=== PATIENT | female | born 1950 | race African-American/Black ===

== ENCOUNTER 2016-08-20 19:30 | Emergency (ER) | payer MEDICARE, OTHER ==
[~2016-08-20] VITALS: Ht 167.6 cm; Wt 112.5 kg
[~2016-08-20 19:30] MED LIST: ACETAMINOPHEN-1 EAC2 PO; AZITHROMYCIN250 MG ORAL; AZITHROMYCIN250 MG PO; ECOTRIN325 MG PO; FERROUS SULFAT325 MG PO; FLEXERIL10 MG PO; FOLIC ACID1 MG PO; GLUCOPHAGE500 MG PO; LOPID600 MG PO; METFORMIN HCL500 M1 ORAL; NORVASC2.5 MG PO; OMEPRAZOLE20 MG PO; PHENERGAN/CODE120 ML PO; SINGULAIR10 MG PO; TAMIFLU75 MG PO; VICODIN 5-5001 EACH PO; VICTOZA 2-0.6 MG/0.1 SUBQ; VITAMIN E400 UNI2 PO; advair; albuterol; soma
[2016-08-20] MEDS ORDERED: Nitroglycerin Subl 0.4mg tab (Bottle Of 25) SL PRN (20:00)
[2016-08-20 20:14] VITALS: BP 134/80
[2016-08-20 20:14] LABS: BASOPHILS % (AUTO) 1.5 % (0.0-2.0); LYMPHOCYTES % (AUTO) 48.8 % (20.0-45.0); MEAN CORPUSCULAR HEMOGLOBIN 27.6 PG (27.0-31.0); MEAN CORPUSCULAR HGB CONC 31.4 G/DL (32.0-36.0); MEAN CORPUSCULAR VOLUME 88 FL (80-99); MEAN PLATELET VOLUME 7.9 FL (6.5-10.1); MONOCYTES % (AUTO) 4.3 % (1.0-10.0); NEUTROPHILS % (AUTO) 43.3 % (45.0-75.0); PLATELET COUNT 278 K/UL (150-450); RED BLOOD COUNT 4.24 M/UL (4.20-5.40); RED CELL DISTRIBUTION WIDTH 12.8 % (11.6-14.8); WHITE BLOOD COUNT 8.4 K/UL (4.8-10.8)
[2016-08-20] MEDS ORDERED: Morphine Sulfate 4mg/ml Inj IVP ONE (20:30)
[2016-08-20 20:31] LABS: ALANINE AMINOTRANSFERASE 19 U/L (3-33); ANION GAP 13 (5-15); ASPARTATE AMINO TRANSFERASE 20 U/L (5-40); CALCIUM 8.9 mg/dL (8.6-10.2); CARBON DIOXIDE 24 mEQ/L (20-30); CHLORIDE 103 mEQ/L (98-107); CREATININE 0.9 mg/dL (0.5-0.9); GLOMERULAR FILTRATION RATE > 60 mL/min (>60); HEMOLYSIS 14; POTASSIUM 4.1 mEQ/L (3.4-4.9); SODIUM 140 mEQ/L (135-145); TOTAL PROTEIN 7.5 g/dL (6.6-8.7); TROPONIN I < 0.30 ng/mL (<=0.30)
[2016-08-20 20:42] LABS: CKMB < 1.5 ng/mL (< 3.8)
[2016-08-20 22:32] VITALS: BP 140/86
[2016-08-20 22:33] VITALS: BP 134/80
--- NOTE | 2016-08-20 22:57 | Emergency Room Report ---
History of Present Illness General Chief Complaint: Chest Pain Source: Patient Present Illness HPI 66-year-old female presents to ED complaining of chest pain and left hip pain. States that earlier today she noticed pain in her left hip. Denies trauma. Pain got worse. /10. Throbbing. Nonradiating. Worse with walking. No other aggravating or relieving factors. Patient also started complaining of chest pain which started shortly after. Pain is pressure-like, left-sided, 7/10 , radiating to the left side of jaw. No other aggravating relieving factors. Denies shortness of breath. Took nitroglycerin at home and states it helped. PMD is Dr. Arellano. Denies any other associated symptoms Allergies: Coded Allergies: BENAZEPRIL (Verified Allergy, Severe, pt had swelling tongue, required treatment to reverse, 11/02/08) HEPARIN AGENTS (Verified Allergy, Unknown, 01/05/10) Patient History Past Medical History: DM, HTN, COPD, CVA/TIA Past Surgical History: none Pertinent Family History: none Social History: Denies: alcohol use, drug use, smoking Now: No Immunizations: UTD Reviewed Nursing Documentation: PMH: Agreed, PSxH: Agreed Nursing Documentation-PMH Hx Cardiac Problems: Yes Hx Hypertension: Yes Hx COPD: Yes Hx Diabetes: Yes - type2 Hx Cancer: No Hx Gastrointestinal Problems: No Hx Neurological Problems: No Hx Cerebrovascular Accident: Yes - 2005, 2013 Hx Transient Ischemic Attacks: Yes - 2012 Hx Dizziness: Yes - PATIENT STATED HAVING DIZZINESS SOME MORNINGS BUT NOT TODAY Review of Systems All Other Systems: negative except mentioned in HPI Physical Exam Vital Signs Date Time Temp Pulse Resp B/P Pulse Ox O2 Delivery O2 Flow Rate FiO2 08/20/16 19:39 98.1 90 24 170/74 99 Room Air Sp02 EP Interpretation: reviewed, normal General Appearance: obese Head: normocephalic Eyes: bilateral eye PERRL, bilateral eye normal inspection ENT: normal ENT inspection Neck: normal inspection Respiratory: chest non-tender, lungs clear, normal breath sounds, speaking full sentences Cardiovascular #1: regular rate, rhythm, no edema Gastrointestinal: normal bowel sounds, non tender, soft, non-distended, no guarding, no rebound Rectal: deferred Genitourinary: no CVA tenderness Musculoskeletal: other - full ROM L hip. no bruising/deformity. no creptius Neurologic: alert, oriented x3, responsive, motor strength/tone normal, sensory intact, speech normal Psychiatric: normal inspection Skin: normal inspection Lymphatic: normal inspection Medical Decision Making Diagnostic Impression: Primary Impression: Chest pain Qualified Codes: R07.9 - Chest pain, unspecified Additional Impression: Hip pain Qualified Codes: M25.552 - Pain in left hip ER Course Hospital Course 66-year-old female presents ED complaining of left-sided chest pain, left hip pain Differential diagnoses include: CT/unstable angina, contusion, muscle strain, PTX, rib fracture Clinical course Patient placed on stretcher. on shelter monitor. After initial history and physical I ordered labs, EKG, chest x-ray, NTG, morphine, L hip xray labs reviewed- no luekocytosis, hb/hct stable, electrolytes ok, trop negative EKG - NSR Chest x-ray- no acute process L hip xray - no fx because of patient's risk factors and presentation I believe she should be admitted for rule out ACS. However patient does not want to stay because she is feeling better. Understands the risks of leaving. Patient has competency to make her own decisions. Signed AMA form. I. I feel this is a highly complex case requiring extensive working including EKG/Rhythm strip, Xray/CT/US, Blood/urine lab work, repeat exams while in ED, and administration of strong opiates/narcotics for pain control, admission to hospital or close patient follow up. Diagnosis - chest pain, hip pain left AMA Labs Test 08/20/16 19:52 White Blood Count 8.4 K/UL (4.8-10.8) Red Blood Count 4.24 M/UL (4.20-5.40) Hemoglobin 11.7 G/DL (12.0-16.0) Hematocrit 37.3 % (37.0-47.0) Mean Corpuscular Volume 88 FL (80-99) Mean Corpuscular Hemoglobin 27.6 PG (27.0-31.0) Mean Corpuscular Hemoglobin Concent 31.4 G/DL (32.0-36.0) Red Cell Distribution Width 12.8 % (11.6-14.8) Platelet Count 278 K/UL (150-450) Mean Platelet Volume 7.9 FL (6.5-10.1) Neutrophils (%) (Auto) 43.3 % (45.0-75.0) Lymphocytes (%) (Auto) 48.8 % (20.0-45.0) Monocytes (%) (Auto) 4.3 % (1.0-10.0) Eosinophils (%) (Auto) 2.0 % (0.0-3.0) Basophils (%) (Auto) 1.5 % (0.0-2.0) Sodium Level 140 mEQ/L (135-145) Potassium Level 4.1 mEQ/L (3.4-4.9) Chloride Level 103 mEQ/L (98-107) Carbon Dioxide Level 24 mEQ/L (20-30) Anion Gap 13 (5-15) Blood Urea Nitrogen 16 mg/dL (7-23) Creatinine 0.9 mg/dL (0.5-0.9) Estimat Glomerular Filtration Rate > 60 mL/min (>60) Glucose Level 121 mg/dL (74-106) Calcium Level 8.9 mg/dL (8.6-10.2) Total Bilirubin < 0.2 mg/dL (0.0-1.2) Aspartate Amino Transf (AST/SGOT) 20 U/L (5-40) Alanine Aminotransferase (ALT/SGPT) 19 U/L (3-33) Alkaline Phosphatase 126 U/L (35-104) Total Creatine Kinase 252 U/L (26-140) Creatine Kinase MB < 1.5 ng/mL (< 3.8) Creatine Kinase MB Relative Index Troponin I < 0.30 ng/mL (<=0.30) Pro-B-Type Natriuretic Peptide 57 pg/mL (0-125) Total Protein 7.5 g/dL (6.6-8.7) Albumin 3.8 g/dL (3.5-5.2) Globulin 3.7 g/dL Albumin/Globulin Ratio 1.0 (1.0-2.7) EKG Diagnostic Results Rate: normal Rhythm: NSR ST Segments: no acute changes ASA given to the pt in ED: No Rhythm Strip Diag. Results EP Interpretation: yes Rhythm: NSR, no PVC's, no ectopy Chest X-Ray Diagnostic Results EP Interpretation: Yes Findings: no consolidation, no effusion, no pneumothorax, no acute cardiopulmonary disease Number of Views: 1 Other X-Ray Diagnostic Results Other X-Ray Diagnostic Results : X-Ray Ordered: L hip EP Interpretation: Yes Findings: no fractures, no dislocation, no soft tissue swelling Number of Views: 3 Last Vital Signs Date Time Temp Pulse Resp B/P Pulse Ox O2 Delivery O2 Flow Rate FiO2 08/20/16 22:33 98.1 79 20 134/80 98 Room Air Status: improved Disposition: AGAINST MEDICAL ADVICE Condition: Stable Referrals: TRACEY ARELLANO (PCP) GLENNA MASTERS M.D. Aug 20, 2016 22:56
--- NOTE | 2016-08-21 10:10 | Diagnostic Imaging Report ---
Indication: Pain, no trauma Technique: 2 views of the left hip Comparison: Findings: There is mild narrowing of the left hip joint. No acute fractures. No dislocations. Impression: No acute process Mild degenerative changes
--- NOTE | 2016-08-21 10:11 | Diagnostic Imaging Report ---
Indication: Chest Technique: One view of the chest Comparison: 04/29/2014 Findings: Body habitus limits evaluation. Improved inspiration currently. Lungs and pleural spaces are clear. Heart size is upper limits of normal Impression: No acute process
--- NOTE | 2016-08-23 14:57 | Cardiology Report ---
APPROVED REPORT EKG Measurement Heart [id number] Normal sinus rhythm Normal ECG
== END 2016-08-20 22:51 | disposition left against medical advice (07) ==
LOC: EMR 21:03
DX: R07.9 Chest pain, unspecified (principal); M25.552 Pain in left hip; E11.9 Type 2 diabetes mellitus without complications; I10 Essential (primary) hypertension; J44.9 Chronic obstructive pulmonary disease, unspecified; Z86.73 Personal history of transient ischemic attack (TIA), and cerebral infarction without residual deficits; Z88.8 Allergy status to other drugs, medicaments and biological substances
CPT/HCPCS: 36415; 71010; 73502; 80053; 82550; 82553; 83880; 84484; 85025; 93005; 96374; 99284; J2270

== ENCOUNTER 2016-10-25 05:32 | Observation (INO) | payer MEDICARE, OTHER ==
[~2016-10-25] VITALS: Ht 162.6 cm; Wt 116.1 kg
[~2016-10-25 05:32] MED LIST changes: +Nitroglycerin 2% oint pkt TOPIC ONE
--- NOTE | 2016-10-25 05:55 | Emergency Room Report ---
History of Present Illness General Chief Complaint: Chest Pain Source: Patient (HEATH RODRIGUEZ M.D.) Present Illness HPI 66 YOF with right sided chest pain, non-radiating, worse with movement, reproducible, worse with breathing that woke her from sleep. CAD risk factors, DM, HTN. Different than the chest pain she had in Aug when she came to ED (ECG and troponin normal, signed out AMA). Denies history of AMI in herself. Denies history of DVT, PE. Non-smoker. Denies calf pain, swelling. (HEATH RODRIGUEZ M.D.) Allergies: Coded Allergies: BENAZEPRIL (Verified Allergy, Severe, pt had swelling tongue, required treatment to reverse, 11/02/08) HEPARIN AGENTS (Verified Allergy, Unknown, 01/05/10) Patient History Past Medical History: DM, HTN, COPD Past Surgical History: none Pertinent Family History: none Social History: Denies: alcohol use, drug use, smoking Now: No Immunizations: UTD Reviewed Nursing Documentation: PMH: Agreed, PSxH: Agreed (HEATH RODRIGUEZ M.D.) Nursing Documentation-PMH Hx Cardiac Problems: Yes Hx Hypertension: Yes Hx COPD: Yes Hx Diabetes: Yes - type2 Hx Cancer: No Hx Gastrointestinal Problems: No Hx Neurological Problems: No Hx Cerebrovascular Accident: Yes - 2005, 2013 Hx Transient Ischemic Attacks: Yes - 2012 Hx Dizziness: Yes - PATIENT STATED HAVING DIZZINESS SOME MORNINGS BUT NOT TODAY (HEATH RODRIGUEZ M.D.) Review of Systems All Other Systems: negative except mentioned in HPI (HEATH RODRIGUEZ M.D.) Physical Exam Vital Signs Date Time Temp Pulse Resp B/P Pulse Ox O2 Delivery O2 Flow Rate FiO2 10/25/16 05:40 97.5 75 20 126/67 99 Room Air Sp02 EP Interpretation: reviewed, normal General Appearance: normal inspection, well appearing, no apparent distress, alert, GCS 15, non-toxic, obese Head: normocephalic, atraumatic Eyes: bilateral eye EOMI, bilateral eye PERRL ENT: normal ENT inspection, hearing grossly normal, normal voice Neck: normal inspection, full range of motion, supple, no bony tend Respiratory: normal inspection, lungs clear, normal breath sounds, no respiratory distress, no retraction, no wheezing, other - Reproducible right sided chest pain, chest symmetrical Cardiovascular #1: regular rate, rhythm, no edema Gastrointestinal: normal inspection, normal bowel sounds, non tender, soft, no guarding, no hernia Genitourinary: no CVA tenderness Musculoskeletal: normal inspection, back normal, normal range of motion, Clark' s Sign negative Neurologic: normal inspection, alert, oriented x3, responsive, breaker hand III-XII nml as tested, motor strength/tone normal, speech normal Psychiatric: normal inspection, judgement/insight normal, mood/affect normal Skin: normal inspection, normal color, no rash (HEATH RODRIGUEZ M.D.) Medical Decision Making Diagnostic Impression: Primary Impression: Chest pain Qualified Codes: R07.1 - Chest pain on breathing ER Course Pleuritic chest pain, reproducible. VSS. Afebrile DDx ACS, PTX, PE, MSK pain PLAN Labs, troponin, d-dimer, CXR, reassess (HEATH RODRIGUEZ M.D.) ER Course CT angio negative. C/O pain and BROWNLEE. Initially refused analgesia, the agreed. Improved with treatment. Admitted tele Dr. Arellano. Laboratory Tests Test 10/25/16 05:45 10/25/16 15:07 White Blood Count 7.0 K/UL (4.8-10.8) Red Blood Count 4.38 M/UL (4.20-5.40) Hemoglobin 11.8 G/DL (12.0-16.0) L Hematocrit 37.4 % (37.0-47.0) Mean Corpuscular Volume 85 FL (80-99) Mean Corpuscular Hemoglobin 27.0 PG (27.0-31.0) Mean Corpuscular Hemoglobin Concent 31.6 G/DL (32.0-36.0) L Red Cell Distribution Width 12.6 % (11.6-14.8) Platelet Count 301 K/UL (150-450) Mean Platelet Volume 8.4 FL (6.5-10.1) Neutrophils (%) (Auto) 47.4 % (45.0-75.0) Lymphocytes (%) (Auto) 44.3 % (20.0-45.0) Monocytes (%) (Auto) 5.6 % (1.0-10.0) Eosinophils (%) (Auto) 1.1 % (0.0-3.0) Basophils (%) (Auto) 1.6 % (0.0-2.0) D-Dimer 616 ng/mL (<500) H Sodium Level 141 mEQ/L (135-145) Potassium Level 4.1 mEQ/L (3.4-4.9) Chloride Level 102 mEQ/L (98-107) Carbon Dioxide Level 21 mEQ/L (20-30) Anion Gap 18 (5-15) H Blood Urea Nitrogen 15 mg/dL (7-23) Creatinine 0.9 mg/dL (0.5-0.9) Estimate Glomerular Filtration Rate > 60 mL/min (>60) Glucose Level 121 mg/dL (74-106) H Calcium Level 9.0 mg/dL (8.6-10.2) Total Bilirubin < 0.2 mg/dL (0.0-1.2) Aspartate Amino Transferase (AST) 16 U/L (5-40) Alanine Aminotransferase (ALT) 17 U/L (3-33) Alkaline Phosphatase 135 U/L (35-104) H Total Creatine Kinase 182 U/L (26-140) H Creatine Kinase MB < 1.5 ng/mL (< 3.8) Creatine Kinase MB Relative Index 0.8 Troponin I < 0.30 ng/mL (<=0.30) < 0.30 ng/mL (<=0.30) Total Protein 7.2 g/dL (6.6-8.7) Albumin 3.9 g/dL (3.5-5.2) Globulin 3.3 g/dL Albumin/Globulin Ratio 1.1 (1.0-2.7) (Celestino Mckeon M.D.) EKG Diagnostic Results Rate: normal Rhythm: NSR ST Segments: no acute changes (HEATH RODRIGUEZ M.D.) Rhythm Strip Diag. Results EP Interpretation: yes Rate: 75 Rhythm: NSR, no PVC's, no ectopy (HEATH RODRIGUEZ M.D.) Last Vital Signs Date Time Temp Pulse Resp B/P Pulse Ox O2 Delivery O2 Flow Rate FiO2 10/25/16 05:40 97.5 75 20 126/67 99 Room Air Status: improved Reevaluation Impression Endorsed to Dr Mckeon at 7am to follow up labs, CXR Will need to be admitted for rule out ACS Advised for CT Chest if elevated d-dimer to evaluate for PE (HEATH RODRIGUEZ M.D.) Last Vital Signs Date Time Temp Pulse Resp B/P Pulse Ox O2 Delivery O2 Flow Rate FiO2 10/26/16 00:44 88 16 99 Room Air 10/25/16 21:06 97.4 116/68 Status: improved (Celestino Mckeon M.D.) Disposition: ADMITTED INPATIENT Condition: Serious HEATH RODRIGUEZ M.D. Oct 25, 2016 05:55 Celestino Mckeon M.D. Oct 25, 2016 10:00
[2016-10-25 06:13] LABS: BASOPHILS % (AUTO) 1.6 % (0.0-2.0); EOSINOPHILS % (AUTO) 1.1 % (0.0-3.0); LYMPHOCYTES % (AUTO) 44.3 % (20.0-45.0); MEAN CORPUSCULAR HGB CONC 31.6 G/DL (32.0-36.0); MEAN CORPUSCULAR VOLUME 85 FL (80-99); MEAN PLATELET VOLUME 8.4 FL (6.5-10.1); MONOCYTES % (AUTO) 5.6 % (1.0-10.0); NEUTROPHILS % (AUTO) 47.4 % (45.0-75.0); PLATELET COUNT 301 K/UL (150-450); RED BLOOD COUNT 4.38 M/UL (4.20-5.40); RED CELL DISTRIBUTION WIDTH 12.6 % (11.6-14.8)
[2016-10-25] MEDS ORDERED: Nitroglycerin 2% oint pkt TOPIC ONE (07:00)
[2016-10-25 07:19] LABS: CKMB < 1.5 ng/mL (< 3.8)
[2016-10-25 07:25] LABS: TROPONIN I < 0.30 ng/mL (<=0.30)
[2016-10-25 07:31] LABS: ALANINE AMINOTRANSFERASE 17 U/L (3-33); ALBUMIN/GLOBULIN RATIO 1.1 (1.0-2.7); ANION GAP 18 (5-15); ASPARTATE AMINO TRANSFERASE 16 U/L (5-40); CARBON DIOXIDE 21 mEQ/L (20-30); CHLORIDE 102 mEQ/L (98-107); CREATININE 0.9 mg/dL (0.5-0.9); GLOMERULAR FILTRATION RATE > 60 mL/min (>60); HEMOLYSIS 7; POTASSIUM 4.1 mEQ/L (3.4-4.9); SODIUM 141 mEQ/L (135-145); TOTAL PROTEIN 7.2 g/dL (6.6-8.7)
[2016-10-25 07:40] VITALS: BP 115/52
[2016-10-25] MEDS ORDERED: INVOKANA100 MG PO (07:41)
[2016-10-25] MEDS ORDERED: VALIUM5 MG ORAL (07:43)
[2016-10-25] MEDS ORDERED: SOMA350 MG PO (07:43)
[2016-10-25] MEDS ORDERED: SINGULAIR10 MG ORAL (07:43)
[2016-10-25] MEDS ORDERED: NITROGLYCERIN0.4 MG SL (07:43)
[2016-10-25] MEDS ORDERED: ADVAIR 100-501 EACH INH (07:46)
[2016-10-25] MEDS ORDERED: ALBUTEROL SULF8.5 GM INH (07:47)
[2016-10-25] MEDS ORDERED: CENTRUM MVI (07:51)
[2016-10-25] MEDS ORDERED: vit b 12 (07:51)
[2016-10-25] MEDS ORDERED: vit e (07:51)
[2016-10-25] MEDS ORDERED: FISH OIL300 M1 PO (07:51)
--- NOTE | 2016-10-25 09:47 | Diagnostic Imaging Report ---
Indication: SOB Technique: XRAY CHEST 1 V. Comparison: 08/20/2016 Findings: The cardiomediastinal silhouette is stable. There are no acute infiltrates. There has been no change from prior exam. Impression: No acute abnormality. .
[2016-10-25 09:52] VITALS: BP 136/66
[2016-10-25] MEDS ORDERED: Morphine Sulfate 4mg/ml Inj IVP ONE (10:15)
[2016-10-25 12:41] VITALS: BP 136/66
[2016-10-25 14:41] VITALS: BP 110/65
[2016-10-25] MEDS ORDERED: Aspirin Baby 81mg ORAL ONE (14:45)
[2016-10-25] MEDS ORDERED: 1/2 NS 1000ml IV ONE (15:24)
[2016-10-25 15:59] LABS: TROPONIN I < 0.30 ng/mL (<=0.30)
[2016-10-25 17:10] VITALS: BP 113/83
[2016-10-25] MEDS ORDERED: DuoNeb 0.5-3(2.5)mg/3ml neb HHN PRN (18:15)
[2016-10-25] MEDS ORDERED: Norco 5mg/325mg tab ORAL PRN (18:15)
[2016-10-25] MEDS ORDERED: metFORMIN 500mg tab ORAL SCH (21:00)
[2016-10-25 21:06] VITALS: BP 116/68
[2016-10-25] MEDS: NovoLOG Insulin Flexpen SUBQ SCH (21:59)
[2016-10-25] MEDS ORDERED: Pseudoephedrine 30mg tab ORAL ONE (22:30)
[2016-10-25] MEDS: Montelukast 10mg tablet ORAL SCH (22:33)
[2016-10-26] VITALS: BP 109/63
[2016-10-26] MEDS: DuoNeb 0.5-3(2.5)mg/3ml neb HHN SCH ×4 (00:35→19:07)
--- NOTE | 2016-10-26 00:49 | History and Physical Report ---
DATE OF ADMISSION: 10/25/2016 REASON FOR ADMISSION: Chest pain and congestion. HISTORY OF PRESENT ILLNESS: This is a 66-year-old female with hypertensive heart disease and [id number] diabetes mellitus for the past few weeks. She has had progressive nasal discharge, congestion, and postnasal drip. She was started as an outpatient on decongestant therapy. She has not improved much. Early this morning, she was awakened from sleep with difficulty breathing. She also noted sharp right-sided chest pain. The patient's symptoms worsened and she came to the emergency room. Her workup included a CT angiogram, which was negative for acute pulmonary embolus. D-dimer is elevated and troponin is negative. The patient was admitted for observation. PAST MEDICAL HISTORY: Hypertension with hypertensive heart disease, asthma with paroxysmal bronchospasm, type 2 diabetes mellitus, postnasal drip, osteoarthritis, degenerative disk disease, history of cerebrovascular accident and transient ischemic attack. MEDICATIONS: Prior to admission, reviewed and reconciled. ALLERGIES: Include heparin, benazepril and metformin. SOCIAL HISTORY: No smoking, alcohol, or substance abuse. REVIEW OF SYSTEMS: No fevers or chills. She has had cough especially at night when lying flat. She occasionally has had wheezing especially last night. Her echocardiogram as an outpatient revealed normal ejection fraction with concentric hypertrophy and no significant valvular disease. There is no history of atrial tachyarrhythmias. She has not had any change in bowel habits. Her diabetes is managed now with Invokana. 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 There is no history of thyroid disorder. She is on anti-lipid drugs. First elevated triglycerides. There is no history of seizures. She has had prior strokes with no residual deficits. She has had frequent headaches over the past few weeks. PHYSICAL EXAMINATION: GENERAL: She appears well at this time and in no acute distress. VITAL SIGNS: Blood pressure 116/68, pulse 76, respirations 18, and afebrile. HEENT: Conjunctivae are pink. Sclerae are anicteric. Oropharynx is clear. No sinus tenderness. NECK: Supple. Jugular venous pressure normal. LUNGS: Clear. CARDIAC: Regular rhythm and rate. Normal S1 and S2 with a fourth heart sound. Chest wall with some tenderness to palpation. ABDOMEN: Soft and nontender. EXTREMITIES: With no clubbing, cyanosis, or edema. Good capillary refill. NEUROLOGIC: Nonfocal. LABORATORY AND DIAGNOSTIC DATA: Chest x-ray revealed no acute abnormalities. EKG sinus rhythm with nonspecific ST changes. White count 7 and hemoglobin 11.8. Potassium 4.1, BUN 15, and creatinine 0.9. Albumin is 3.9. IMPRESSION: The patient is a 66-year-old [place] female, who has several risk factors for premature coronary disease, however, her current presentation is not typical for an acute coronary syndrome. She has ruled out for myocardial infarction. Her EKGs are negative and her pain is not recurring. She did have some markers suggesting a pulmonary embolic event namely her elevated D-dimer, but again her CT angio was negative making this less likely as well. She does seem to have upper respiratory irritation and pleuritic type of symptoms. Sinusitis needs to be considered as well as paroxysmal bronchospasm. PLAN: 1. Admit for observation. 2. Cardiac monitoring. 3. Inhaled bronchodilators. 4. CT of the sinuses. 5. Continue baseline cardiovascular regimen. 6. Insulin coverage by sliding scale. 7. Outpatient stress test when respiratory status is optimized. Celestino Arellano M.D. DR: SHEYLA JOB#: [id number] CC:
[2016-10-26 04:00] VITALS: BP 110/70
[2016-10-26] MEDS ORDERED: NovoLOG Insulin Flexpen SUBQ SCH (06:30)
[2016-10-26] MEDS: NovoLOG Insulin Flexpen SUBQ SCH ×4 (06:30→21:43)
[2016-10-26 08:00] VITALS: BP 140/69
--- NOTE | 2016-10-26 08:59 | Diagnostic Imaging Report ---
Indication: Chest pain Technique: CT angiography performed utilizing thin section spiral CT and bolus contrast injection. Axial, coronal, and sagittal images were generated. Maximum intensity projections (MIPs) were obtained in the coronal and sagittal planes. Dose: Total Dose Length Product - DLP [address] Dose Index - CTDIvol(s) 12.6 2063.11, 38.84 mGy. Findings: The aorta is normal in caliber. There is no evidence of aortic dissection. Heart is enlarged. There are no pulmonary emboli. Some linear densities are noted in the posterior lungs. The lungs are otherwise unremarkable. The pleural spaces normal. Mild degenerative changes are noted in the spine. Calcified nodes are noted in the right paratracheal region. The liver is diffusely low density. The remainder the study is unremarkable. Impression: Old granulomatous disease. No evidence of pulmonary emboli or aortic dissection. Fatty liver. Degenerative change of the spine. The CT scanner at [facility] is accredited by the [employer] and the scans are performed using protocols designed to limit radiation exposure to as low as reasonably achievable to attain images of sufficient resolution adequate for diagnostic evaluation.
[2016-10-26 12:00] VITALS: BP 133/76
[2016-10-26 16:00] VITALS: BP 115/66
--- NOTE | 2016-10-26 16:23 | Diagnostic Imaging Report ---
Indications: COUGH Technique: Spiral images obtained through the maxillofacial sinuses. No IV contrast utilized. Multiplanar reconstructions were generated.Total dose length product 609 mGycm. CTDIvol(s) 20mGy Comparison: None Findings: Sinuses are clear. No mucosal thickening, air-fluid levels, or opacities demonstrated. The maxillary ostia are patent. There is leftward nasal septal deviation. The included intracranial structures are unremarkable. The orbits are unremarkable. No bony abnormality. Except for evidence of acute is evidence of prior to the contractions. The remaining dentition is intact. Impression: Essentially unremarkable exam. Incidental findings as noted The CT scanner at [facility] is accredited by the [employer] and the scans are performed using protocols designed to limit radiation exposure to as low as reasonably achievable to attain images of sufficient resolution adequate for diagnostic evaluation.
[2016-10-26] MEDS: Montelukast 10mg tablet ORAL SCH (17:57)
--- NOTE | 2016-10-26 19:51 | Cardiology Report ---
APPROVED REPORT EKG Measurement Heart [id number] Normal sinus rhythm Possible Left atrial enlargement Borderline ECG
[2016-10-26 20:00] VITALS: BP 136/72
[2016-10-27 01:00] VITALS: BP 105/51
[2016-10-27] MEDS: DuoNeb 0.5-3(2.5)mg/3ml neb HHN SCH ×3 (01:08→13:30)
--- NOTE | 2016-10-27 03:18 | Progress Note ---
DATE: 10/26/2016 CARDIOLOGY PROGRESS NOTE SUBJECTIVE: No chest pain. No shortness of breath. Some nasal congestion. Monitored sinus. OBJECTIVE: VITAL SIGNS: Blood pressure 105/51, pulse 80, and respirations 20. LUNGS: Clear. No sinus tenderness. CARDIAC: Regular. Normal S1 and S2. ABDOMEN: Soft. EXTREMITIES: No edema. LABORATORY AND DIAGNOSTIC DATA: CT scan of the sinuses was pending. IMPRESSION: 1. Musculoskeletal chest pain. CT angiogram of the chest negative for pulmonary emboli. Troponin is negative with no EKG changes and no clinical signs of acute coronary insufficiency. 2. Hypertensive heart disease with controlled blood pressure. 3. Episodic sinus tenderness with postnasal drip. 4. Asthma with paroxysmal bronchospasm. PLAN: 1. Await sinus CT scan. 2. Inhaled bronchodilators. 3. Maintenance of diabetic and cardiovascular regimen. 4. Discharge planning. 5. Outpatient stress test. Celestino Arellano M.D. DR: Naomy JOB#: [id number] CC:
[2016-10-27 04:00] VITALS: BP 110/59
[2016-10-27] MEDS: NovoLOG Insulin Flexpen SUBQ SCH ×2 (06:30→11:23)
[2016-10-27 08:31] VITALS: BP 116/50
[2016-10-27 12:36] VITALS: BP 121/68
[2016-10-27 16:00] VITALS: BP 129/73
[2016-10-27] MEDS ORDERED: 1/2 NS 1000ml IV ONE (18:19)
--- NOTE | 2016-10-28 00:28 | Progress Note ---
DATE: 10/27/2016 MEDICINE AND CARDIOLOGY PROGRESS NOTE SUBJECTIVE: No chest pain. Less congestion from the upper airways and no shortness of breath. She does get improvement with inhaled bronchodilators. She feels worse with proton pump inhibitors. OBJECTIVE: VITAL SIGNS: Blood pressure 129/73, pulse 92, respiratory rate 18, and afebrile. HEENT: No sinus tenderness LUNGS: Bilateral breath sounds. No wheezing. CARDIOVASCULAR: Regular rhythm and rate. Normal S1 and S2. No murmur. ABDOMEN: Soft. EXTREMITIES: Trace edema. DIAGNOSTIC DATA: Sinus CAT scan is normal. IMPRESSION: 1. Musculoskeletal chest pain. 2. Asthma with paroxysmal bronchospasm. 3. Postnasal drip. 4. Hypertensive heart disease. 5. Type 2 diabetes mellitus. 6. Truncal obesity. PLAN: P.r.n. bronchodilators by nebulizer. Discontinue proton pump inhibitor. P.r.n. anti-acids. Continue current cardiovascular regimen for blood pressure management. Resume Invokana as outpatient. We will arrange for outpatient exercise stress test for assessment of coronary flow reserve in view of risk factors for premature coronary disease. Celestino Arellano M.D. DR: SAQIB JOB#: [id number] CC:
== END 2016-10-27 18:20 | disposition home or self-care (01) ==
LOC: EMR 05:45 → EDBEDREQ 14:35 → 2W 15:23 → INTOOBSV 15:23 → OBSVTOIN 15:23 → 2E 10-27 07:07
DX: R07.89 Other chest pain (principal); J45.909 Unspecified asthma, uncomplicated; R09.82 Postnasal drip; I13.10 Hypertensive heart and chronic kidney disease without heart failure, with stage 1 through stage 4 chronic kidney disease, or unspecified chronic kidney disease; N18.9 Chronic kidney disease, unspecified; E11.9 Type 2 diabetes mellitus without complications; Z79.84 Long term (current) use of oral hypoglycemic drugs; M19.90 Unspecified osteoarthritis, unspecified site; E66.9 Obesity, unspecified; Z86.73 Personal history of transient ischemic attack (TIA), and cerebral infarction without residual deficits; Z88.8 Allergy status to other drugs, medicaments and biological substances
CPT/HCPCS: 36415; 70486; 71010; 71275; 80053; 82550; 82553; 82962 ×3; 84484; 85025; 85379; 93005; 94640 ×2; 99285; G0378 ×2; J1170; J1815; J2270; J2405; Q9967; J7620

== ENCOUNTER 2017-01-19 08:50 | Outpatient (CLI) | payer MEDICARE, OTHER ==
[~2017-01-19 08:50] MED LIST changes: +ADVAIR 100-501 EACH INH; +ALBUTEROL SULF8.5 GM INH; +CENTRUM MVI; +FISH OIL300 M1 PO; +INVOKANA100 MG PO; +NITROGLYCERIN0.4 MG SL; -Nitroglycerin 2% oint pkt TOPIC ONE; +SINGULAIR10 MG ORAL; +SOMA350 MG PO; +VALIUM5 MG ORAL; +vit b 12; +vit e
--- NOTE | 2017-01-19 10:06 | Diagnostic Imaging Report ---
Indication: Cough and congestion. Technique: Continuous helical transaxial imaging of the maxillofacial structures obtained without intravenous contrast administration. Coronal 2-D reformats were also obtained. Study obtained in a Siemens sensation [address] Total Dose length Product (DLP): [address] Dose Index Volume (CTDIvol): 28 mGy Comparison: 10/26/16 Findings: The middle turbinates are aerated due to a vladimir bullosa. There is a prominent left inferior medial Brigitte cell. The left ostomy the unit appears patent. There is no evidence of sinusitis or obstruction. The left maxillary sinus is considerably smaller than the right. The remainder of the paranasal sinuses are unremarkable. Mastoids are clear bilaterally. Impression: No evidence of acute or chronic sinusitis. Bilateral vladimir bullosa Clear bilateral ostiomeatal units. Some variant anatomy noted on the left side, which does not appear to be significant at this time. The CT scanner at [facility] is accredited by the [employer] and the scans are performed using dose optimization techniques as appropriate to a performed exam including Automatic Exposure control.
== END 2017-01-19 10:50 | disposition home or self-care (01) ==
LOC: CAT 08:50
DX: R05 Cough (principal)
CPT/HCPCS: 70486

== ENCOUNTER 2017-02-10 08:34 | Outpatient (CLI) | payer MEDICARE, OTHER ==
--- NOTE | 2017-02-10 10:12 | Diagnostic Imaging Report ---
Clinical Indication: COUGH, history of COPD, bronchitis, pneumonia Technique: Spiral acquisitions obtained through the chest. No IV contrast utilized, reason not stated. Multiplanar reconstructions generated. Total dose length product 859 mGycm. CTDIvol(s) 28 mGy. Dose reduction achieved using automated exposure control Comparison: CTA chest 01/08/2007 Findings:Some scarring is again demonstrated at the left lung base. The lungs and pleural spaces are otherwise clear. No infiltrates, effusions, masses, or nodules are demonstrated. Normal heart size. No pericardial effusion. No mediastinal or hilar mass or adenopathy. No axillary or chest wall mass or adenopathy. The included portions of the thyroid are unremarkable. There is a small sliding-type hiatal hernia. There are degenerative changes of the lumbar spine. The included upper abdominal anatomy demonstrates hepatic low attenuation. Impression: No acute pulmonary abnormality Minimal left basilar scarring Fatty liver incidentally noted The CT scanner at [facility] is accredited by the [employer] and the scans are performed using protocols designed to limit radiation exposure to as low as reasonably achievable to attain images of sufficient resolution adequate for diagnostic evaluation.
== END 2017-02-10 10:34 | disposition home or self-care (01) ==
LOC: CAT 08:34
DX: R05 Cough (principal); J44.9 Chronic obstructive pulmonary disease, unspecified; K76.0 Fatty (change of) liver, not elsewhere classified
CPT/HCPCS: 71250

== ENCOUNTER 2017-04-20 13:27 | Emergency (ER) | payer MEDICARE, OTHER ==
[~2017-04-20] VITALS: Ht 167.6 cm; Wt 112.9 kg
[2017-04-20 14:14] VITALS: BP 129/80
[2017-04-20 14:30] LABS: EOSINOPHILS % (AUTO) 1.2 % (0.0-3.0); LYMPHOCYTES % (AUTO) 43.7 % (20.0-45.0); MEAN CORPUSCULAR HEMOGLOBIN 27.2 PG (27.0-31.0); MEAN CORPUSCULAR HGB CONC 31.4 G/DL (32.0-36.0); MEAN CORPUSCULAR VOLUME 87 FL (80-99); MEAN PLATELET VOLUME 8.3 FL (6.5-10.1); MONOCYTES % (AUTO) 5.3 % (1.0-10.0); NEUTROPHILS % (AUTO) 48.9 % (45.0-75.0); PLATELET COUNT 305 K/UL (150-450); RED BLOOD COUNT 4.62 M/UL (4.20-5.40); RED CELL DISTRIBUTION WIDTH 12.5 % (11.6-14.8); WHITE BLOOD COUNT 7.3 K/UL (4.8-10.8)
[2017-04-20 14:35] LABS: TROPONIN I < 0.30 ng/mL (<=0.30)
[2017-04-20 14:38] LABS: ALANINE AMINOTRANSFERASE 14 U/L (3-33); ALBUMIN/GLOBULIN RATIO 1.2 (1.0-2.7); ANION GAP 14 (5-15); ASPARTATE AMINO TRANSFERASE 15 U/L (5-40); CALCIUM 9.2 mg/dL (8.6-10.2); CARBON DIOXIDE 24 mEQ/L (20-30); CHLORIDE 102 mEQ/L (98-107); GLOMERULAR FILTRATION RATE > 60 mL/min (>60); HEMOLYSIS 5; POTASSIUM 3.7 mEQ/L (3.4-4.9); SODIUM 140 mEQ/L (135-145); TOTAL PROTEIN 7.7 g/dL (6.6-8.7)
--- NOTE | 2017-04-20 14:39 | Diagnostic Imaging Report ---
Indication: Dyspnea Comparison: 10/25/16 A single view chest radiograph was obtained. Findings: No definite infiltrate or pulmonary vascular congestion identified. The heart is enlarged. The aorta is mildly enlarged consistent with atherosclerotic vascular disease. The bones are osteopenic. Impression: No acute disease
[2017-04-20] MEDS ORDERED: Albuterol ud Inhalation HHN ONE (14:45)
[2017-04-20 14:48] LABS: CKMB < 1.5 ng/mL (< 3.8)
[2017-04-20] MEDS ORDERED: Ketorolac 30mg Inj IV ONE (15:30)
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
[2017-04-20] MEDS ORDERED: CYCLOBENZAPRINE10 MG ORAL (15:47)
[2017-04-20] MEDS ORDERED: ACETAMINOPHEN-1 EAC1 ORAL (15:47)
[2017-04-20 16:15] VITALS: BP 131/73
--- NOTE | 2017-04-20 16:35 | Diagnostic Imaging Report ---
Indication: Back pain Comparison: None Findings: 3 views of the lumbar spine were obtained. Multilevel narrowing of intervertebral disks and associated endplate and Facet osteophytes are present. No malalignment identified. No acute fracture definitely seen. Impression: Moderate spondylosis. No acute injury appreciated.
[2017-04-20] MEDS ORDERED: LIDODERM700 M1 TOPIC (17:09)
--- NOTE | 2017-04-21 16:09 | Cardiology Report ---
APPROVED REPORT EKG Measurement Heart [id number] Normal sinus rhythm Left axis deviation Abnormal ECG
== END 2017-04-20 18:34 | disposition home or self-care (01) ==
LOC: CANBEDREQ 15:24 → EMR 15:25
DX: R07.89 Other chest pain (principal); M54.31 Sciatica, right side; E11.9 Type 2 diabetes mellitus without complications; J44.9 Chronic obstructive pulmonary disease, unspecified; I10 Essential (primary) hypertension; Z86.73 Personal history of transient ischemic attack (TIA), and cerebral infarction without residual deficits
CPT/HCPCS: 36415; 71010; 72020; 80053; 82550; 82553; 83880; 84484; 85025; 93005; 96374; 99284; J1885

== ENCOUNTER 2017-12-06 08:22 | Emergency (ER) | payer MEDICARE, OTHER ==
[~2017-12-06] VITALS: Ht 167.6 cm; Wt 113.4 kg
[~2017-12-06 08:22] MED LIST changes: +ACETAMINOPHEN-1 EAC1 ORAL; +CYCLOBENZAPRINE10 MG ORAL; +LIDODERM700 M1 TOPIC
[2017-12-06] MEDS ORDERED: Tylenol #3 tab (300mg/30mg) ORAL ONE (08:45)
[2017-12-06 08:48] VITALS: BP 108/68
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
[2017-12-06 09:05] LABS: BASOPHILS % (AUTO) 1.6 % (0.0-2.0); EOSINOPHILS % (AUTO) 1.4 % (0.0-3.0); HEMATOCRIT 36.2 % (37.0-47.0); HEMOGLOBIN 12.1 G/DL (12.0-16.0); LYMPHOCYTES % (AUTO) 42.4 % (20.0-45.0); MEAN CORPUSCULAR VOLUME 83 FL (80-99); MONOCYTES % (AUTO) 4.5 % (1.0-10.0); NEUTROPHILS % (AUTO) 50.1 % (45.0-75.0); PLATELET COUNT 257 K/UL (150-450); RED BLOOD COUNT 4.34 M/UL (4.20-5.40); RED CELL DISTRIBUTION WIDTH 12.2 % (11.6-14.8); WHITE BLOOD COUNT 5.9 K/UL (4.8-10.8)
[2017-12-06 09:23] LABS: ANION GAP 9 mmol/L (5-15); BLOOD UREA NITROGEN 17 mg/dL (7-18); CALCIUM 8.7 MG/DL (8.5-10.1); CARBON DIOXIDE 25 MMOL/L (21-32); CHLORIDE 105 MMOL/L (98-107); CREATININE 0.9 MG/DL (0.55-1.30); SODIUM 139 MMOL/L (136-145)
[2017-12-06 09:31] LABS: ALANINE AMINOTRANSFERASE 43 U/L (12-78); ALBUMIN 3.4 G/DL (3.4-5.0); ALBUMIN/GLOBULIN RATIO 0.7 (1.0-2.7); ALKALINE PHOSPHATASE 122 U/L (46-116); ASPARTATE AMINO TRANSFERASE 29 U/L (15-37); BILIRUBIN,TOTAL 0.2 MG/DL (0.2-1.0)
[2017-12-06] MEDS ORDERED: ACETAMINOPHEN-1 EAC1 ORAL (10:13)
[2017-12-06 10:32] VITALS: BP 149/81
--- NOTE | 2017-12-06 12:17 | Diagnostic Imaging Report ---
Indication: Right hip pain Technique: 2 views of the right hip Comparison: none Findings: Body habitus limits exam. There is severe degenerative narrowing of the hip joint. This is circumferential. There are mild associated degenerative proliferative changes. No definite acute fractures. No dislocations. Impression: No definite acute bony trauma. Note, however, that in elderly osteoporotic patients, nondisplaced hip and pelvic fractures can easily be occult. Note that body habitus also further limit sensitivity Hip joint space narrowing. Probably on the basis of degenerative changes, but the possibility of inflammatory arthropathy should also be considered
--- NOTE | 2017-12-06 12:18 | Diagnostic Imaging Report ---
Indication: Chest pain Technique: One view of the chest Comparison: 04/20/2017 Findings: Lungs and pleural spaces are clear. Heart size is normal. There is no significant interim change Impression: No acute process
--- NOTE | 2017-12-07 13:44 | Cardiology Report ---
APPROVED REPORT EKG Measurement Heart [id number] Normal sinus rhythm Normal ECG
== END 2017-12-06 10:45 | disposition home or self-care (01) ==
LOC: EMR 08:43 → UNDOADMIN 09:07 → 2E 09:07 → EDBEDREQ 09:38 → CANBEDREQ 10:34 → EMR 10:45
DX: M25.551 Pain in right hip (principal); R07.89 Other chest pain; G89.29 Other chronic pain; J44.9 Chronic obstructive pulmonary disease, unspecified; E11.9 Type 2 diabetes mellitus without complications; Z88.8 Allergy status to other drugs, medicaments and biological substances; I10 Essential (primary) hypertension; Z86.73 Personal history of transient ischemic attack (TIA), and cerebral infarction without residual deficits
CPT/HCPCS: 36415; 71045; 80053; 84484; 85025; 93005; 93971; 99284

== ENCOUNTER 2020-03-22 07:44 | Emergency (ER) | payer MEDICARE, OTHER ==
[~2020-03-22] VITALS: Ht 167.6 cm; Wt 113.4 kg
[2020-03-22] MEDS ORDERED: NORCO 10-325 T1 EACH ORAL (08:05)
[2020-03-22 08:07] VITALS: BP 124/79
[2020-03-22] MEDS ORDERED: Ketorolac 30mg Inj IM ONE (08:30)
[2020-03-22] MEDS ORDERED: CYCLOBENZAPRINE10 MG ORAL (08:34)
[2020-03-22 08:40] VITALS: BP 124/79
--- NOTE | 2020-03-22 08:51 | Emergency Room Report ---
History of Present Illness General Chief Complaint: Pain Source: Patient Present Illness HPI Disclaimer: Please note that this report is being documented using [employer] technology. This can lead to erroneous entry secondary to incorrect interpretation by the dictating instrument. HPI: 69-year-old female history of chronic pain syndrome chronic right hip pain presented for right hip and groin pain. Patient states in the bathroom she slipped about 1 week ago almost doing a "split" since that time she has had right groin pain that is about 8-10 out of 10 worse with movement. No other injuries reported. Patient ambulatory with a cane on arrival. She currently takes Worden daily for pain and is followed by pain management. Allergies: Coded Allergies: BENAZEPRIL (Verified Allergy, Severe, pt had swelling tongue, required treatment to reverse, 11/02/08) ESCITALOPRAM (Verified Allergy, Unknown, 04/20/17) COVID-19 Screening Contact w/high risk pt: No Experienced COVID-19 symptoms?: No COVID-19 Testing performed [employer]: No Patient History Reviewed Nursing Documentation: PMH: Agreed; PSxH: Agreed Nursing Documentation-PMH Hx Cardiac Problems: Yes - high cholesterol Hx Hypertension: Yes Hx COPD: Yes Hx Diabetes: Yes Hx Cancer: No Hx Gastrointestinal Problems: No Hx Neurological Problems: Yes Hx Cerebrovascular Accident: Yes Hx Transient Ischemic Attacks: Yes - 2012 Hx Dizziness: Yes - PATIENT STATED HAVING DIZZINESS SOME MORNINGS BUT NOT TODAY Hx Headaches: Yes Review of Systems All Other Systems: negative except mentioned in HPI Physical Exam Vital Signs Date Time Temp Pulse Resp B/P (MAP) Pulse Ox O2 Delivery O2 Flow Rate FiO2 03/22/20 08:02 98.8 79 18 124/79 (94) 97 Room Air Sp02 EP Interpretation: reviewed, normal General Appearance: well appearing, no apparent distress Head: normocephalic, atraumatic Eyes: bilateral eye PERRL, bilateral eye EOMI ENT: hearing grossly normal, moist mucus membranes Neck: full range of motion, supple Respiratory: lungs clear, normal breath sounds, no rhonchi, no respiratory distress, no retraction, no wheezing Cardiovascular #1: normal peripheral pulses, regular rate, rhythm, no murmur Gastrointestinal: non tender, soft, non-distended, no guarding Musculoskeletal: other - Full range of motion of right lower extremity with some pain in the right groin. Mild mild tenderness noted to the groin. No calf tenderness. 2+ pulses distally. Neurologic: alert, oriented x3, no focal defects Skin: normal color, warm/dry Medical Decision Making Diagnostic Impression: Primary Impression: Right hip pain Additional Impression: Strain of right groin ER Course Differential included but not limited to arthritis, groin strain, less likely DVT or ischemic limb. In the ER patient had mild tenderness of the groin and right hip but full range of motion and ambulatory. Pain started after slipping in the shower and what I believe causing a muscular strain of the right groin area. Patient is currently on pain control with pain management will add muscle relaxants as needed and have her follow-up with PMD. Return precautions given Last Vital Signs Date Time Temp Pulse Resp B/P (MAP) Pulse Ox O2 Delivery O2 Flow Rate FiO2 03/22/20 08:07 98.8 78 18 124/79 97 Room Air Disposition: HOME, SELF-CARE Condition: Stable Scripts Cyclobenzaprine Hcl* (FLEXERIL*) 10 Mg Tablet 10 MG ORAL THREE TIMES A DAY PRN for muscle spasm, #15 TAB Prov: Moisés Apodaca M.D. 03/22/20 Patient Instructions: Groin Strain Additional Instructions: Patient is instructed to follow-up with her primary care doctor, primary care clinic or county clinic in 1 to 2 days. Patient instructed to return for any worsening symptoms or concerns. Disclaimer: Please note that this report is being documented using [employer] technology. This can lead to erroneous entry secondary to incorrect interpretation by the dictating instrument. Moisés Apodaca M.D. Mar 22, 2020 08:51
== END 2020-03-22 08:40 | disposition home or self-care (01) ==
LOC: EMR 08:04
DX: S39.011A Strain of muscle, fascia and tendon of abdomen, initial encounter (principal); W01.0XXA Fall on same level from slipping, tripping and stumbling without subsequent striking against object, initial encounter; Y92.9 Unspecified place or not applicable; Z88.8 Allergy status to other drugs, medicaments and biological substances; I10 Essential (primary) hypertension; J44.9 Chronic obstructive pulmonary disease, unspecified; E78.00 Pure hypercholesterolemia, unspecified; E11.9 Type 2 diabetes mellitus without complications; Z86.73 Personal history of transient ischemic attack (TIA), and cerebral infarction without residual deficits
CPT/HCPCS: 96372; 99283; J1885

== ENCOUNTER 2020-05-24 08:39 | Emergency (ER) | payer MEDICARE, OTHER ==
[~2020-05-24] VITALS: Ht 167.6 cm; Wt 113.4 kg
[~2020-05-24 08:39] MED LIST changes: +NORCO 10-325 T1 EACH ORAL
--- NOTE | 2020-05-24 09:04 | Emergency Room Report ---
History of Present Illness General Chief Complaint: Abdominal Pain Source: Patient Present Illness HPI 69-year-old female presents with suprapubic sharp pain x1 day, aggravated with movement alleviated throughout severity is moderate, intermittent patient reports similar to the kidney pain she had in the past when she passed a stone, no fevers no chills no diarrhea no dysuria, patient presents for evaluation and treatment Allergies: Coded Allergies: BENAZEPRIL (Verified Allergy, Severe, pt had swelling tongue, required treatment to reverse, 11/02/08) ESCITALOPRAM (Verified Allergy, Unknown, 04/20/17) COVID-19 Screening Contact w/high risk pt: No Experienced COVID-19 symptoms?: No COVID-19 Testing performed AUTOMATIC BUFFER: No Patient History Past Medical History: see triage record Now: No Reviewed Nursing Documentation: PMH: Agreed; PSxH: Agreed Nursing Documentation-PMH Hx Cardiac Problems: Yes - high cholesterol Hx Hypertension: Yes Hx COPD: Yes Hx Diabetes: Yes Hx Cancer: No Hx Gastrointestinal Problems: No Hx Neurological Problems: Yes Hx Cerebrovascular Accident: Yes - x 2 Hx Transient Ischemic Attacks: Yes - 2012 Hx Dizziness: Yes - PATIENT STATED HAVING DIZZINESS SOME MORNINGS BUT NOT TODAY Hx Headaches: Yes Review of Systems All Other Systems: negative except mentioned in HPI Physical Exam Vital Signs Date Time Temp Pulse Resp B/P (MAP) Pulse Ox O2 Delivery O2 Flow Rate FiO2 05/24/20 08:44 98.2 82 19 131/81 (98) 95 Room Air Sp02 EP Interpretation: reviewed, normal General Appearance: well appearing, no apparent distress, alert Head: normocephalic, atraumatic Eyes: bilateral eye PERRL, bilateral eye EOMI ENT: uvula midline, moist mucus membranes Neck: supple, thyroid normal, supple/symm/no masses Respiratory: lungs clear, no respiratory distress, no retraction, no accessory muscle use Cardiovascular #1: normal peripheral pulses, regular rate, rhythm, no edema, no gallop, no murmur Gastrointestinal: soft, no guarding, no rebound, tenderness - Suprapubically Genitourinary: no CVA tenderness Musculoskeletal: normal inspection Neurologic: alert, oriented x3 Psychiatric: mood/affect normal Skin: no rash, warm/dry Medical Decision Making Diagnostic Impression: Primary Impression: Strain of groin Qualified Codes: S76.219A - Strain of adductor muscle, fascia and tendon of unspecified thigh, initial encounter ER Course 69-year-old female presents with suprapubic pain differential diagnosis includes UTI, groin strain, nephrolithiasis Labs negative, CT scan negative Patient reassured patient does not want any pain medications to go home with. Patient states she will take home ibuprofen Strict return precautions were discussed abdominal return precautions were discussed Laboratory Tests Test 05/24/20 09:00 05/24/20 09:10 Urine Color Yellow Urine Appearance Clear Urine pH 5 (4.5-8.0) Urine Specific [place] 1.025 (1.005-1.035) Urine Protein Negative (NEGATIVE) Urine Glucose (UA) Negative (NEGATIVE) Urine Ketones Negative (NEGATIVE) Urine Blood Negative (NEGATIVE) Urine Nitrite Negative (NEGATIVE) Urine Bilirubin Negative (NEGATIVE) Urine Urobilinogen Normal MG/DL (0.0-1.0) Urine Leukocyte Esterase Negative (NEGATIVE) White Blood Count 6.3 K/UL (4.8-10.8) Red Blood Count 4.42 M/UL (4.20-5.40) Hemoglobin 11.9 G/DL (12.0-16.0) L Hematocrit 36.3 % (37.0-47.0) L Mean Corpuscular Volume 82 FL (80-99) Mean Corpuscular Hemoglobin 27.0 PG (27.0-31.0) Mean Corpuscular Hemoglobin Concent 32.9 G/DL (32.0-36.0) Red Cell Distribution Width 12.3 % (11.6-14.8) Platelet Count 296 K/UL (150-450) Mean Platelet Volume 7.2 FL (6.5-10.1) Neutrophils (%) (Auto) 47.0 % (45.0-75.0) Lymphocytes (%) (Auto) 42.9 % (20.0-45.0) Monocytes (%) (Auto) 5.6 % (1.0-10.0) Eosinophils (%) (Auto) 1.7 % (0.0-3.0) Basophils (%) (Auto) 2.9 % (0.0-2.0) H Sodium Level 141 MMOL/L (136-145) Potassium Level 4.0 MMOL/L (3.5-5.1) Chloride Level 106 MMOL/L (98-107) Carbon Dioxide Level 24 MMOL/L (21-32) Anion Gap 11 mmol/L (5-15) Blood Urea Nitrogen 13 mg/dL (7-18) Creatinine 1.1 MG/DL (0.55-1.30) Estimated Glomerular Filtration Rate > 60 mL/min (>60) Glucose Level 99 MG/DL (74-106) Calcium Level 8.3 MG/DL (8.5-10.1) L Total Bilirubin 0.3 MG/DL (0.2-1.0) Aspartate Amino Transferase (AST) 18 U/L (15-37) Alanine Aminotransferase (ALT) 24 U/L (12-78) Alkaline Phosphatase 139 U/L (46-116) H Total Protein 7.6 G/DL (6.4-8.2) Albumin 3.3 G/DL (3.4-5.0) L Globulin 4.3 g/dL Albumin/Globulin Ratio 0.8 (1.0-2.7) L Lipase 103 U/L (73-393) CT/MRI/US Diagnostic Results CT/MRI/US Diagnostic Results : Impression Procedure: CT Abdomen Pelvis WO Contrast Indication: Reason For Exam: ABD PAIN Technique: Spiral acquisitions obtained through the abdomen and pelvis. No oral or IV contrast utilized, per urinary stone protocol. Multiplanar reconstructions were generated. Total dose length product 1034 mGycm. CTDIvol(s) 21 mGy. Dose reduction achieved using automated exposure control Comparison: none Findings: No renal or ureteral calculi, hydronephrosis nor hydroureter demonstrated. Lack of IV contrast limits assessment of the renal parenchyma. No gross renal parenchymal mass or cyst demonstrated. Normal bladder. Lack of IV contrast limits assessment of the other solid organs. The liver is diffusely hypoattenuating. No focal abnormality. The gallbladder is not well visualized, grossly nondistended, no definite stones. No biliary ductal dilatation. The pancreas, spleen, adrenals are unremarkable. No retroperitoneal or mesenteri c mass or adenopathy. No pelvic mass or adenopathy. Normal appendix. There are colonic diverticula. No evidence of diverticulitis. No small bowel distention. No free or loculated intraperitoneal gas or fluid is evident. The distal esophagus demonstrates a small sliding-type hiatal hernia. The remainder of the stomach and duodenum are unremarkable. The included lung bases demonstrate minimal scarring or atelectasis. The bones demonstrate degenerative spondylosis changes. Impression: No evidence of urinary stone disease, obstructive uropathy, or other acute abnormality Diverticulosis. No evidence of diverticulitis Small hiatal hernia, degenerative spondylosis, minimal pulmonary basilar scarring or atelectasis incidentally noted The CT scanner at [facility] is accredited by the [employer] and the scans are performed using protocols designed to limit radiation exposure to as low as reasonably achievable to attain images of sufficient resolution adequate for diagnostic evaluation. Dictated By: Hawk Tuttle MD Electronically Signed By:Hawk Tuttle MD Signed Date/Time05/24/20 1147 CC: Sean Meier [id number] 0 Last Vital Signs Date Time Temp Pulse Resp B/P (MAP) Pulse Ox O2 Delivery O2 Flow Rate FiO2 05/24/20 08:44 98.2 82 19 131/81 (98) 95 Room Air Disposition: HOME, SELF-CARE Condition: Stable Referrals: [facility]. [facility] Patient Instructions: Groin Strain Additional Instructions: The patient was provided with discharge instructions, notified to follow-up with a primary care doctor and or specialist in the next 24-48 hours, and to return to the ED if they have worsening of their symptoms. Please note that this report is being documented using [employer] technology. This can lead to erroneous entry secondary to incorrect interpretation by the dictating instrument. Sean Meier MD May 24, 2020 09:04
[2020-05-24 09:13] VITALS: BP 131/81
--- NOTE | 2020-05-24 09:15 | NUR ---
ED Nurse Note:pt. came from home c/o lower abdominal pain for 2 days, pt. is A/Ox4 ambulatory, blood and urine sent to labs
[2020-05-24 09:19] LABS: BASOPHILS % (AUTO) 2.9 % (0.0-2.0); EOSINOPHILS % (AUTO) 1.7 % (0.0-3.0); HEMATOCRIT 36.3 % (37.0-47.0); HEMOGLOBIN 11.9 G/DL (12.0-16.0); LYMPHOCYTES % (AUTO) 42.9 % (20.0-45.0); MEAN CORPUSCULAR VOLUME 82 FL (80-99); MONOCYTES % (AUTO) 5.6 % (1.0-10.0); PLATELET COUNT 296 K/UL (150-450); RED BLOOD COUNT 4.42 M/UL (4.20-5.40); RED CELL DISTRIBUTION WIDTH 12.3 % (11.6-14.8); WHITE BLOOD COUNT 6.3 K/UL (4.8-10.8)
[2020-05-24 09:35] LABS: APPEARANCE,URINE CLEAR; BILIRUBIN, URINE NEGATIVE (NEGATIVE); GLUCOSE, URINE (UA) NEGATIVE (NEGATIVE); KETONES,URINE NEGATIVE (NEGATIVE); LEUKOCYTE ESTERASE ,URINE NEGATIVE (NEGATIVE); NITRITE,URINE NEGATIVE (NEGATIVE); PH,URINE 5 (4.5-8.0); PROTEIN,URINE NEGATIVE (NEGATIVE); UROBILINOGEN,URINE NORMAL MG/DL (0.0-1.0)
[2020-05-24 09:36] LABS: COLOR,URINE YELLOW
[2020-05-24 09:41] LABS: ANION GAP 11 mmol/L (5-15); BLOOD UREA NITROGEN 13 mg/dL (7-18); CALCIUM 8.3 MG/DL (8.5-10.1); CARBON DIOXIDE 24 MMOL/L (21-32); CHLORIDE 106 MMOL/L (98-107); CREATININE 1.1 MG/DL (0.55-1.30); SODIUM 141 MMOL/L (136-145)
[2020-05-24 09:46] LABS: ALANINE AMINOTRANSFERASE 24 U/L (12-78); ALBUMIN 3.3 G/DL (3.4-5.0); ALBUMIN/GLOBULIN RATIO 0.8 (1.0-2.7); ALKALINE PHOSPHATASE 139 U/L (46-116); ASPARTATE AMINO TRANSFERASE 18 U/L (15-37); BILIRUBIN,TOTAL 0.3 MG/DL (0.2-1.0)
--- NOTE | 2020-05-24 11:13 | NUR ---
ED Nurse Note: Pt returned from CT, not in any distress.
--- NOTE | 2020-05-24 11:52 | Diagnostic Imaging Report ---
Indication: Reason For Exam: ABD PAIN Technique: Spiral acquisitions obtained through the abdomen and pelvis. No oral or IV contrast utilized, per urinary stone protocol. Multiplanar reconstructions were generated. Total dose length product 1034 mGycm. CTDIvol(s) 21 mGy. Dose reduction achieved using automated exposure control Comparison: none Findings: No renal or ureteral calculi, hydronephrosis nor hydroureter demonstrated. Lack of IV contrast limits assessment of the renal parenchyma. No gross renal parenchymal mass or cyst demonstrated. Normal bladder. Lack of IV contrast limits assessment of the other solid organs. The liver is diffusely hypoattenuating. No focal abnormality. The gallbladder is not well visualized, grossly nondistended, no definite stones. No biliary ductal dilatation. The pancreas, spleen, adrenals are unremarkable. No retroperitoneal or mesenteric mass or adenopathy. No pelvic mass or adenopathy. Normal appendix. There are colonic diverticula. No evidence of diverticulitis. No small bowel distention. No free or loculated intraperitoneal gas or fluid is evident. The distal esophagus demonstrates a small sliding-type hiatal hernia. The remainder of the stomach and duodenum are unremarkable. The included lung bases demonstrate minimal scarring or atelectasis. The bones demonstrate degenerative spondylosis changes. Impression: No evidence of urinary stone disease, obstructive uropathy, or other acute abnormality Diverticulosis. No evidence of diverticulitis Small hiatal hernia, degenerative spondylosis, minimal pulmonary basilar scarring or atelectasis incidentally noted The CT scanner at [facility] is accredited by the [employer] and the scans are performed using protocols designed to limit radiation exposure to as low as reasonably achievable to attain images of sufficient resolution adequate for diagnostic evaluation.
[2020-05-24 12:15] VITALS: BP 128/80
[2020-05-24 12:20] VITALS: BP 128/78
--- NOTE | 2020-05-24 12:20 | NUR ---
ER DISCHARGE NOTE: Patient is cleared to be discharged per ERMD, pt is aox4, on room air, with stable vital signs. pt was given dc and prescription instructions, pt was able to verbalize understanding, pt id band and iv site removed without complications. pt is able to ambulate with steady gait. pt took all belongings.
== END 2020-05-24 12:27 | disposition home or self-care (01) ==
LOC: EMR 09:14
DX: S76.219A Strain of adductor muscle, fascia and tendon of unspecified thigh, initial encounter (principal); Z88.8 Allergy status to other drugs, medicaments and biological substances; I10 Essential (primary) hypertension; J44.9 Chronic obstructive pulmonary disease, unspecified; E11.9 Type 2 diabetes mellitus without complications; Z86.73 Personal history of transient ischemic attack (TIA), and cerebral infarction without residual deficits; K57.90 Diverticulosis of intestine, part unspecified, without perforation or abscess without bleeding; K44.9 Diaphragmatic hernia without obstruction or gangrene; M47.9 Spondylosis, unspecified; X58.XXXA Exposure to other specified factors, initial encounter; Y92.9 Unspecified place or not applicable
CPT/HCPCS: 36415; 74176; 80053; 81003; 83690; 85025; 99284